=== PATIENT | female | born 1980 | race Caucasian/White ===

== ENCOUNTER 2018-10-21 08:36 | Emergency (ER) | payer OTHER ==
[~2018-10-21] VITALS: Ht 162.6 cm; Wt 68.0 kg
[2018-10-21 08:54] VITALS: BP 125/67
[2018-10-21] MEDS ORDERED: SYNTHROID25 MC1 PO ×2 (08:58→09:01)
== END 2018-10-21 09:13 | disposition home or self-care (01) ==
LOC: ER 08:36
DX: O99.281 Endocrine, nutritional and metabolic diseases complicating pregnancy, first trimester (principal); E03.9 Hypothyroidism, unspecified; Z76.0 Encounter for issue of repeat prescription; Z3A.12 12 weeks gestation of pregnancy